=== PATIENT | female | born 1980 | race Caucasian/White ===

== ENCOUNTER 2017-02-08 07:16 | Emergency (ER) | payer OTHER ==
[~2017-02-08] VITALS: Ht 154.9 cm; Wt 55.5 kg
[~2017-02-08 07:16] MED LIST: PREN1TAB47 PO
[2017-02-08 07:23] VITALS: BP 183/108; PULSE 96; RESP 16; O2SAT 96
--- NOTE | 2017-02-08 07:41 | ED.REPORT ---
HPI-Rash / Abscess Date of Service Feb 08, 2017 ED Provider: Juan Solano Pt is a 36 year old female with a history of anxiety who presents to the ED complaining of a rash on her head onset 2 months ago. Pt c/o associated itching , red bumps, anxiety, insomnia, vomiting, nausea, increased bowel movement, stress, formication on the scalp, and weight loss. She denies fever and any other symptoms. The pt reports that she used lice shampoo because her kids had lice, resulting in a burning sensation and a rash. She last used the shampoo . She went to the lice clinic and was informed that she didn't have lice. Pt obtained an oil from the clinic and has been using it since since she feels like she still has lice. Pt reports that she was recently diagnosed with seborrheic dermatitis when attempting to address the lice, resulting in shampooing her hair on 01/27/17 with sea salt with improvement. She also c/ o erythema on her chest and face, but she is unsure whether it is a sunburn or "seborrheic dermatitis spreading." She admits to occasional caffeine consumption and states that she has tried using melatonin for her insomnia without relief. Nursing Notes Stated Complaint: SKIN RASH/ANXIOUS Chief Complaint: General Complaint Nursing Notes Reviewed: Yes Allergies: Coded Allergies: No Known Allergies (Verified , 03/31/08) Scheduled Vit/Fe Fumarate/Fa-Expunged Drug, Do (-Expunged Drug, Do Not Renew!) 1 Tab Tablet EA PO DAILY General Time Seen by MD: 07:40 Chief Complaint Rash Hx Obtained From: Patient Arrived By: Walk-in Onset Occurred: More than a week ago... (2 months) Symptom Duration: Since onset Location: : Scalp Quality: Painful Severity: Current: Moderate Severity: Maximum: Moderate Recent Healthcare: Recent doctor visit Similar Sx Previous: No Past Medical History Past Medical History Anxiety Denies: Diabetes mellitus, Hypertension Past Surgical History Denies Smoking History Never Smoker Social History Alcohol Use: "Social" Drug Use: Denies drug use Other Social History: Good social support, Occupation Teacher at [employer] Ambulatory Status Independent Review of Systems + Red bumps + Burning sensation + Formication on the scalp + Increased bowel movements Constitutional: Denies: Fever Respiratory: Denies: Non-productive cough, Shortness of breath GI: Reports: Nausea, Vomiting Skin: Reports Itching, Reports Rash Complete sys rev & neg: except as marked. Psychiatric: Reports: Anxiety, Insomnia, Stress Physical Exam Initial Vital Signs Vital Signs (First) Date Time Temp Pulse Resp B/P Pulse Ox O2 Delivery O2 Flow Rate FiO2 02/08/17 07:23 36.9 96 16 183/108 96 Room Air Initial VS: Reviewed Neck: Supple, Full range of motion Respiratory: Breath sounds normal, Clear to auscultation, No respiratory distress Cardiovascular: Regular rate & rhythm, Heart sounds normal, Intact distal pulses Abdomen / GI: Soft, Non-tender Extremities: Vascular intact, Neuro intact Neurologic: Alert, Oriented, Nonfocal Psychiatric: Mood/affect normal, Behavior normal General/Constitutional: Awake, Alert, Cooperative Skin: Atraumatic, Warm, Dry, Intact Head / Eyes: Atraumatic, Normocephalic Re-Eval/Medical Decision Source of Hx: Old records Re-Evaluation/Progress : Time of Eval: 08:00 Re-Evaluation/Progress Note: Pt rechecked. Informed pt of plan for discharge. Pt understands and agrees with plan for discharge. F/U instructions and RTER warnings given. All questions addressed. Counseled Regarding: Diagnosis, Need for follow-up, When/why to return to ED Discharge & Departure Impression: Primary Impression: Anxiety Additional Impression: Insomnia Disposition: Home Discharge Condition All VS Reviewed: Yes Condition: Stable Patient Instructions: Anxiety (ED) Additional Instructions: Call your primary care provider, Dr. Anders, on Friday for a follow-up appointment next week for help with the current situation. I think it is very likely that she will be able to help you considerably with this problem. For better sleep, don't eat or drink anything 2-3 hours before going to bed. Try to get up at the same time everyday regardless of when you went to bed. Don' t do anything in bed such as reading or watching TV. When you lay down, don't lay there not sleeping for more than 10-15 minutes. If you can't get to sleep during that time, go do a boring or mildly engaging activity until you start feeling tired then trying laying in bed again. Avoid caffeine while you are experiencing your anxiety. Careful with itching and try to not use anything with an edge, as you can inflame the skin. Use Ibuprofen as much as 600 mg every 8 hours and Benadryl (diphenhydramine) 12.5-50 mg every 6 hours as needed for your sunburns as directed. To help with sleep I recommend the following: Diphenhydramine 12.5-50 mg at bedtime. Or Doxylamine succinate (Unisom) 1 tablet at bedtime. If these sleep strategies/medications are not helpful, I recommend discussing this with Dr. Anders as well. I recommended that you set your Fit Bit aside for now. I did not see any skin condition today that concerns me. Try to not worry about the way your skin is feeling. Referrals: Lencho Anders MD (PCP) Scribe Attestation Portions of this note were transcribed by Jihan Ackerman. I, Dr. Solano personally performed the history, physical exam and medical decision-making; I reviewed and confirmed the accuracy of the information in the transcribed note. Signed by: Brandyn Kendrick, 02/08/17 and 08:50. copies to: Lencho Anders MD, Kirk H MD Feb 08, 2017 07:40 Jihan Mcdaniels Feb 08, 2017 07:49
[2017-02-08 08:51] VITALS: BP 110/74; PULSE 72; RESP 17; O2SAT 99
== END 2017-02-08 08:48 | disposition home or self-care (01) ==
LOC: SED 07:16
DX: F41.9 Anxiety disorder, unspecified (principal); G47.00 Insomnia, unspecified; R21 Rash and other nonspecific skin eruption